=== PATIENT | female | born 1980 | race Caucasian/White ===

== ENCOUNTER 2017-11-29 06:59 | Emergency (ER) | payer MEDICAID ==
[~2017-11-29] VITALS: Ht 165.1 cm; Wt 76.8 kg
[~2017-11-29 06:59] MED LIST: ALBU8.5H8 INH; FLUT16SP2 BOTHNARES; GUAI120015 PO; HYDR-4383 PO; PSEU-259 PO
[2017-11-29 07:09] VITALS: BP 108/67
[2017-11-29] MEDS ORDERED: GUAI120L55 PO (07:27)
== END 2017-11-29 07:36 | disposition home or self-care (01) ==
LOC: ER 07:00
DX: J06.9 Acute upper respiratory infection, unspecified (principal); J45.909 Unspecified asthma, uncomplicated; Z90.710 Acquired absence of both cervix and uterus; Z79.899 Other long term (current) drug therapy
CPT/HCPCS: 99282

== ENCOUNTER 2017-12-01 05:34 | Emergency (ER) | payer MEDICAID ==
[~2017-12-01] VITALS: Ht 165.1 cm; Wt 78.3 kg
[~2017-12-01 05:34] MED LIST changes: +GUAI120L55 PO
[2017-12-01 05:37] VITALS: BP 115/70
[2017-12-01] MEDS ORDERED: BENZ-16 PO (05:52)
[2017-12-01] MEDS ORDERED: ketorolac trometh inj. 60 MG/2 ML VIAL IM ONE (05:55)
[2017-12-01] MEDS ORDERED: acetaminophen 325mg tablet PO ONE (05:55)
== END 2017-12-01 06:06 | disposition home or self-care (01) ==
LOC: ER 05:35
DX: J06.9 Acute upper respiratory infection, unspecified (principal); J45.909 Unspecified asthma, uncomplicated; Z90.710 Acquired absence of both cervix and uterus; Z79.899 Other long term (current) drug therapy
CPT/HCPCS: 96372; 99283; J1885

== ENCOUNTER 2018-01-23 14:47 | Emergency (ER) | payer MEDICAID ==
[~2018-01-23] VITALS: Ht 165.1 cm; Wt 79.3 kg
[2018-01-23 14:59] VITALS: BP 107/66
[2018-01-23] MEDS ORDERED: IBUP-1985 PO (15:29)
== END 2018-01-23 15:57 | disposition home or self-care (01) ==
LOC: ER 14:48
DX: S76.012A Strain of muscle, fascia and tendon of left hip, initial encounter (principal); J45.909 Unspecified asthma, uncomplicated; Z79.899 Other long term (current) drug therapy; Z90.710 Acquired absence of both cervix and uterus; X58.XXXA Exposure to other specified factors, initial encounter; Y93.89 Activity, other specified; Y92.89 Other specified places as the place of occurrence of the external cause; Y99.8 Other external cause status
CPT/HCPCS: 99282

== ENCOUNTER 2018-03-15 14:49 | Emergency (ER) | payer MEDICAID ==
[~2018-03-15] VITALS: Ht 165.1 cm; Wt 77.9 kg
[~2018-03-15 14:49] MED LIST changes: +IBUP-1985 PO
[2018-03-15 15:01] VITALS: BP 106/67
[2018-03-15 18:27] LABS: CLARITY,URINE CLEAR (Clear); COLOR,URINE YELLOW (Yellow); GLUCOSE, URINE NEGATIVE (Neg); KETONES,URINE >=80 mg/dl (Neg); LEUKOCYTE ESTERASE ,URINE NEGATIVE (Neg); NITRITES, URINE NEGATIVE (Neg); OCCULT BLOOD,URINE NEGATIVE (Neg); PROTEIN,URINE NEGATIVE (Neg); UROBILINOGEN,URINE 0.2 E.U/dL (0.2-1.0)
[2018-03-15 18:28] LABS: UA COLLECTION TYPE CLN CATCH MIDSTREAM
== END 2018-03-15 18:58 | disposition home or self-care (01) ==
LOC: ER 14:49
DX: R10.32 Left lower quadrant pain (principal); R10.12 Left upper quadrant pain; J45.909 Unspecified asthma, uncomplicated; F41.9 Anxiety disorder, unspecified; F32.9 Major depressive disorder, single episode, unspecified; Z79.899 Other long term (current) drug therapy; Z90.710 Acquired absence of both cervix and uterus
CPT/HCPCS: 81003; 99283

== ENCOUNTER 2019-09-05 09:49 | Emergency (ER) | payer BC, MEDICAID ==
[~2019-09-05] VITALS: Ht 165.1 cm; Wt 80.0 kg
[~2019-09-05 09:49] MED LIST changes: +CYCL-1 PO; +KETO10TA2 PO
[2019-09-05] MEDS ORDERED: ketorolac tromethamine 15mg/ml inj. IM ONE (11:05)
[2019-09-05 11:13] LABS: CLARITY,URINE SLIGHTLY CLOUDY (Clear); COLOR,URINE YELLOW (Yellow); GLUCOSE, URINE NEGATIVE (Neg); KETONES,URINE NEGATIVE (Neg); LEUKOCYTE ESTERASE ,URINE NEGATIVE (Neg); NITRITES, URINE NEGATIVE (Neg); OCCULT BLOOD,URINE LARGE (Neg); PROTEIN,URINE NEGATIVE (Neg)
[2019-09-05 11:14] LABS: UA COLLECTION TYPE NON-SPECIFIED
[2019-09-05 11:21] LABS: RBC,URINE 50-100 /HPF (0-2); WBC,URINE 0-4 /HPF (0-4)
[2019-09-05 11:23] LABS: BACTERIA,URINE 1+ /HPF (Neg); MUCUS STRANDS MODERATE /LPF (Neg); SQUAMOUS EPITHELIAL CELL,UR MODERATE /LPF (FEW)
[2019-09-05 11:35] VITALS: BP 117/67
[2019-09-05] MEDS ORDERED: IBUP-1985 PO (12:06)
[2019-09-05] MEDS ORDERED: HYDR-3965 PO (12:06)
== END 2019-09-05 12:24 | disposition home or self-care (01) ==
LOC: ER 09:50
DX: N20.0 Calculus of kidney (principal); R31.9 Hematuria, unspecified; R10.32 Left lower quadrant pain; J45.909 Unspecified asthma, uncomplicated; F41.9 Anxiety disorder, unspecified; F32.9 Major depressive disorder, single episode, unspecified; Z86.69 Personal history of other diseases of the nervous system and sense organs; Z85.41 Personal history of malignant neoplasm of cervix uteri; Z90.710 Acquired absence of both cervix and uterus; Z79.899 Other long term (current) drug therapy
CPT/HCPCS: 81001; 96372; 99284; J1885

== ENCOUNTER 2019-10-07 09:07 | Emergency (ER) | payer BC, OTHER ==
[~2019-10-07] VITALS: Ht 165.1 cm; Wt 82.7 kg
[~2019-10-07 09:07] MED LIST changes: +HYDR-3965 PO
[2019-10-07 09:55] LABS: BASOPHILS % (AUTO) 0.9 % (0-1); EOSINOPHILS # (AUTO) 0.2 X10'3 (0-0.9); EOSINOPHILS % (AUTO) 4.4 % (0-6); HEMATOCRIT 38.9 % (35.0-45.0); HEMOGLOBIN 13.5 g/dl (12.0-16.0); LYMPHOCYTES # (AUTO) 1.4 X10'3 (1.1-4.8); LYMPHOCYTES % (AUTO) 33.4 % (21-51); MEAN CORPUSCULAR HEMOGLOBIN 31.2 PG (27.0-31.0); MEAN CORPUSCULAR HGB CONC 34.6 g/dL (33.0-36.5); MEAN CORPUSCULAR VOLUME 90.2 FL (78-98); MEAN PLATELET VOLUME 8.2 FL (7.4-10.4); MONOCYTES # (AUTO) 0.3 X10'3 (0-0.9); MONOCYTES % (AUTO) 6.7 % (2-12); NEUTROPHILS # (AUTO) 2.3 X10'3 (1.8-7.7); NEUTROPHILS % (AUTO) 54.6 % (42-75); PLATELET COUNT 224 X10'3 (140-440); RED BLOOD COUNT 4.32 X10'6 (4.20-5.60); RED CELL DISTRIBUTION WIDTH 12.7 % (11.5-14.5); WHITE BLOOD COUNT 4.3 X10'3 (4.5-11.0)
[2019-10-07 10:00] LABS: ALBUMIN 3.9 G/DL (3.4-5.0); ANION GAP 9 (8-16); BLOOD UREA NITROGEN 13 MG/DL (7-18); BUN/CREATININE RATIO 16.3 (6.6-38.0); CALCIUM 8.5 MG/DL (8.5-10.1); CHLORIDE 103 MMOL/L (99-107); GLUCOSE 84 MG/DL (70-104); POTASSIUM 3.1 MMOL/L (3.5-5.1); SODIUM 139 MMOL/L (135-145); TOTAL CARBON DIOXIDE 26.8 MMOL/L (24-32); eGFR 80 ML/MIN
[2019-10-07 10:07] LABS: URINE HCG NEGATIVE (NEG)
[2019-10-07] MEDS ORDERED: iohexol 300mg/ml 100ml inj. ONE (10:10)
[2019-10-07 10:11] LABS: CLARITY,URINE CLEAR (Clear); COLOR,URINE YELLOW (Yellow); GLUCOSE, URINE NEGATIVE (Neg); KETONES,URINE NEGATIVE (Neg); LEUKOCYTE ESTERASE ,URINE NEGATIVE (Neg); NITRITES, URINE NEGATIVE (Neg); OCCULT BLOOD,URINE NEGATIVE (Neg); PROTEIN,URINE NEGATIVE (Neg); UROBILINOGEN,URINE 0.2 E.U/dL (0.2-1.0)
[2019-10-07 10:12] LABS: UA COLLECTION TYPE CLN CATCH MIDSTREAM
[2019-10-07] MEDS ORDERED: potassium Cl 20 mEq SR tablet PO STA (10:22)
[2019-10-07 11:17] VITALS: BP 106/72
== END 2019-10-07 11:19 | disposition home or self-care (01) ==
LOC: ER 09:08
DX: R19.7 Diarrhea, unspecified (principal); R10.31 Right lower quadrant pain; E87.6 Hypokalemia; J45.909 Unspecified asthma, uncomplicated; F41.9 Anxiety disorder, unspecified; Z90.710 Acquired absence of both cervix and uterus; Z79.899 Other long term (current) drug therapy
CPT/HCPCS: 74177; 80048; 81003; 81025; 85025; 99285; Q9967; 36415

== ENCOUNTER 2020-08-14 21:36 | Emergency (ER) | payer MEDICAID ==
[~2020-08-14] VITALS: Ht 165.1 cm; Wt 80.9 kg
[~2020-08-14 21:36] MED LIST changes: -HYDR-3965 PO
[2020-08-14 22:27] LABS: BASOPHILS % (AUTO) 0.3 % (0-1); EOSINOPHILS # (AUTO) 0.1 X10'3 (0-0.9); EOSINOPHILS % (AUTO) 0.9 % (0-6); HEMATOCRIT 39.3 % (35.0-45.0); HEMOGLOBIN 13.4 g/dl (12.0-16.0); LYMPHOCYTES # (AUTO) 1.3 X10'3 (1.1-4.8); LYMPHOCYTES % (AUTO) 14.3 % (21-51); MEAN CORPUSCULAR HEMOGLOBIN 30.9 PG (27.0-31.0); MEAN CORPUSCULAR HGB CONC 34.1 g/dL (33.0-36.5); MEAN CORPUSCULAR VOLUME 90.6 FL (78-98); MEAN PLATELET VOLUME 8.4 FL (7.4-10.4); MONOCYTES # (AUTO) 0.8 X10'3 (0-0.9); MONOCYTES % (AUTO) 8.4 % (2-12); NEUTROPHILS # (AUTO) 7.2 X10'3 (1.8-7.7); NEUTROPHILS % (AUTO) 76.1 % (42-75); PLATELET COUNT 239 X10'3 (140-440); RED BLOOD COUNT 4.34 X10'6 (4.20-5.60); RED CELL DISTRIBUTION WIDTH 12.9 % (11.5-14.5); WHITE BLOOD COUNT 9.4 X10'3 (4.5-11.0)
[2020-08-14 22:33] LABS: ALANINE AMINOTRANSFERASE 22 U/L (12-78); ALBUMIN 3.7 G/DL (3.4-5.0); ALBUMIN/GLOBULIN RATIO 0.9 (1.1-1.5); ALKALINE PHOSPHATASE 58 IU/L (46-116); ANION GAP 10 (8-16); ASPARTATE AMINO TRANSFERASE 14 U/L (10-37); BILIRUBIN,TOTAL 0.3 MG/DL (0.1-1.0); BLOOD UREA NITROGEN 12 MG/DL (7-18); BUN/CREATININE RATIO 14.8 (6.6-38.0); CHLORIDE 105 MMOL/L (99-107); CREATININE 0.81 MG/DL (0.40-0.90); GLUCOSE 102 MG/DL (70-104); LIPASE 111 U/L (73-393); SODIUM 141 MMOL/L (135-145); TOTAL CARBON DIOXIDE 25.8 MMOL/L (24-32); TOTAL PROTEIN 7.8 G/DL (6.4-8.2); eGFR 79 ML/MIN
[2020-08-14 22:36] LABS: CLARITY,URINE TURBID (Clear); COLOR,URINE YELLOW (Yellow); GLUCOSE, URINE NEGATIVE (Neg); KETONES,URINE NEGATIVE (Neg); LEUKOCYTE ESTERASE ,URINE NEGATIVE (Neg); NITRITES, URINE NEGATIVE (Neg); OCCULT BLOOD,URINE NEGATIVE (Neg); PH,URINE 5.5 (4.8-8.0); PROTEIN,URINE 30 mg/dl (Neg); UROBILINOGEN,URINE 0.2 E.U/dL (0.2-1.0)
[2020-08-14 22:36] LABS: POTASSIUM 2.8 MMOL/L (3.5-5.1)
[2020-08-14 22:41] LABS: URINE HCG NEGATIVE (NEG)
[2020-08-14] MEDS ORDERED: potassium Cl 10 mEq/100mL bag IV ONE (22:45)
[2020-08-14 22:47] LABS: UA COLLECTION TYPE CLN CATCH MIDSTREAM
[2020-08-14 23:01] LABS: MAGNESIUM 1.9 MG/DL (1.5-2.4)
[2020-08-14 23:13] LABS: AMORPHOUS URATES 3+; BACTERIA,URINE NONE SEEN /HPF (Neg); MUCUS STRANDS MANY /LPF (Neg); RBC,URINE NONE SEEN /HPF (0-2); SQUAMOUS EPITHELIAL CELL,UR MANY /LPF (FEW); WBC,URINE 0-4 /HPF (0-4)
[2020-08-15] MEDS ORDERED: potassium Cl 20 mEq SR tablet PO STA (01:18)
[2020-08-15] MEDS ORDERED: magnesium oxide 400mg tablet PO ONE (01:20)
[2020-08-15] MEDS ORDERED: acetaminophen 325mg tablet PO ONE (02:05)
[2020-08-15] MEDS ORDERED: ondansetron/PF 4mg/2ml inj IV ONE (02:05)
[2020-08-15] MEDS ORDERED: potassium Cl 10 mEq/100mL bag IV ONE (02:05)
[2020-08-15] MEDS ORDERED: normal saline 1000ML IV soln IVB ONE ×3 (02:05→08:30)
[2020-08-15] MEDS ORDERED: dicyclomine 10 MG capsule PO ONE (03:50)
--- NOTE | 2020-08-15 04:02 | NUR ---
Patient had an episode of emsis- zofran administered. Waiting before giving PO medications.
--- NOTE | 2020-08-15 06:52 | NUR ---
RE STARTED NS IV BOLUS.STILL FINISHING UP WO BAGS OF NS 1L EACH.CALL LIGHT WTIHIN REACH,DENIES NAUSEA NO VOMITING.
[2020-08-15] MEDS ORDERED: diphenoxylate/atropine tablet (Lomotil) PO ONE (08:30)
[2020-08-15] MEDS ORDERED: ONDA4TAB6 PO (08:33)
[2020-08-15] MEDS ORDERED: DIPH1TAB PO (08:33)
[2020-08-15 09:15] VITALS: BP 97/67
== END 2020-08-15 09:17 | disposition home or self-care (01) ==
LOC: ER 21:36
DX: K52.9 Noninfective gastroenteritis and colitis, unspecified (principal); E87.6 Hypokalemia; J45.909 Unspecified asthma, uncomplicated; Z87.442 Personal history of urinary calculi; F41.9 Anxiety disorder, unspecified; F32.9 Major depressive disorder, single episode, unspecified
CPT/HCPCS: 36415; 80053; 81001; 81025; 83690; 83735; 85025; 96361; 96365; 96366; 96375; 99285; J2405; J3480; J7030; 96374

== ENCOUNTER 2020-10-09 06:58 | Emergency (ER) | payer MEDICAID ==
[~2020-10-09] VITALS: Ht 165.1 cm; Wt 81.8 kg
[~2020-10-09 06:58] MED LIST changes: +ALBU8.5H17 INH; -ALBU8.5H8 INH; +DIPH1TAB PO; +ONDA4TAB6 PO
[2020-10-09 07:13] VITALS: BP 115/73
[2020-10-09] MEDS ORDERED: acetaminophen 325mg tablet PO ONE (07:45)
[2020-10-09] MEDS ORDERED: ondansetron 4mg rapidly disintigrating tab PO ONE (07:45)
[2020-10-09 09:38] LABS: BASOPHILS % (AUTO) 0.4 % (0-1); EOSINOPHILS # (AUTO) 0.1 X10'3 (0-0.9); EOSINOPHILS % (AUTO) 1.8 % (0-6); HEMATOCRIT 38.6 % (35.0-45.0); LYMPHOCYTES # (AUTO) 1.6 X10'3 (1.1-4.8); LYMPHOCYTES % (AUTO) 25.7 % (21-51); MEAN CORPUSCULAR HGB CONC 33.7 g/dL (33.0-36.5); MEAN CORPUSCULAR VOLUME 91.9 FL (78-98); MEAN PLATELET VOLUME 8.1 FL (7.4-10.4); MONOCYTES # (AUTO) 0.4 X10'3 (0-0.9); MONOCYTES % (AUTO) 6.5 % (2-12); NEUTROPHILS # (AUTO) 4.2 X10'3 (1.8-7.7); NEUTROPHILS % (AUTO) 65.6 % (42-75); PLATELET COUNT 240 X10'3 (140-440); RED CELL DISTRIBUTION WIDTH 13.8 % (11.5-14.5); WHITE BLOOD COUNT 6.4 X10'3 (4.5-11.0)
[2020-10-09 09:55] LABS: ALANINE AMINOTRANSFERASE 22 U/L (12-78); ALBUMIN 3.9 G/DL (3.4-5.0); ALKALINE PHOSPHATASE 53 IU/L (46-116); ANION GAP 12 (8-16); ASPARTATE AMINO TRANSFERASE 16 U/L (10-37); BILIRUBIN,TOTAL 0.4 MG/DL (0.1-1.0); BLOOD UREA NITROGEN 12 MG/DL (7-18); BUN/CREATININE RATIO 18.2 (6.6-38.0); CALCIUM 8.2 MG/DL (8.5-10.1); CHLORIDE 108 MMOL/L (99-107); CREATININE 0.66 MG/DL (0.40-0.90); GLUCOSE 92 MG/DL (70-104); POTASSIUM 3.9 MMOL/L (3.5-5.1); SODIUM 143 MMOL/L (135-145); TOTAL CARBON DIOXIDE 23.3 MMOL/L (24-32); TOTAL PROTEIN 7.9 G/DL (6.4-8.2); eGFR > 90 ML/MIN
[2020-10-09] MEDS ORDERED: ONDA8TAB13 PO (10:17)
[2020-10-09] MEDS ORDERED: BENZ-16 PO (10:17)
--- NOTE | 2020-10-09 11:05 | NUR ---
Patient seen and assessed by provider.
== END 2020-10-09 11:04 | disposition home or self-care (01) ==
LOC: ER 06:58
DX: J06.9 Acute upper respiratory infection, unspecified (principal); Z20.822 Contact with and (suspected) exposure to COVID-19; R11.10 Vomiting, unspecified; G40.909 Epilepsy, unspecified, not intractable, without status epilepticus; J45.909 Unspecified asthma, uncomplicated; Z87.442 Personal history of urinary calculi; Z87.410 Personal history of cervical dysplasia; Z90.710 Acquired absence of both cervix and uterus; Z79.899 Other long term (current) drug therapy
CPT/HCPCS: 36415; 80053; 85025; 87635; 99283; C9803

== ENCOUNTER 2021-02-19 05:58 | Emergency (ER) | payer MEDICAID ==
[~2021-02-19] VITALS: Ht 165.1 cm; Wt 84.0 kg
[~2021-02-19 05:58] MED LIST changes: +ONDA8TAB13 PO
[2021-02-19 06:50] VITALS: BP 115/84
[2021-02-19] MEDS ORDERED: ONDA4TAB6 PO (08:02)
== END 2021-02-19 08:43 | disposition home or self-care (01) ==
LOC: ER 05:59
DX: B34.9 Viral infection, unspecified (principal); Z20.822 Contact with and (suspected) exposure to COVID-19; K52.9 Noninfective gastroenteritis and colitis, unspecified; J45.909 Unspecified asthma, uncomplicated; G40.909 Epilepsy, unspecified, not intractable, without status epilepticus; Z87.410 Personal history of cervical dysplasia; Z87.442 Personal history of urinary calculi; Z90.710 Acquired absence of both cervix and uterus; Z79.899 Other long term (current) drug therapy
CPT/HCPCS: 71045; 87635; 99284; C9803

== ENCOUNTER 2021-03-03 08:21 | Emergency (ER) | payer MEDICAID ==
[~2021-03-03] VITALS: Ht 165.1 cm; Wt 86.4 kg
[2021-03-03] MEDS ORDERED: normal saline 1000ML IV soln IVB ONE (09:35)
[2021-03-03] MEDS ORDERED: proCHLORperazine 10 MG/2 ml inj IV ONE (09:35)
[2021-03-03] MEDS ORDERED: ketorolac tromethamine 15mg/ml inj. IV ONE (09:35)
[2021-03-03] MEDS ORDERED: diphenhydrAMINE 50 mg/ml inj IV ONE (09:35)
[2021-03-03 09:51] LABS: BASOPHILS % (AUTO) 0.4 % (0-1); EOSINOPHILS # (AUTO) 0.1 X10'3 (0-0.9); EOSINOPHILS % (AUTO) 1.7 % (0-6); HEMATOCRIT 41.4 % (35.0-45.0); HEMOGLOBIN 13.9 g/dl (12.0-16.0); LYMPHOCYTES # (AUTO) 1.7 X10'3 (1.1-4.8); LYMPHOCYTES % (AUTO) 34.3 % (21-51); MEAN CORPUSCULAR HEMOGLOBIN 30.6 PG (27.0-31.0); MEAN CORPUSCULAR HGB CONC 33.6 g/dL (33.0-36.5); MEAN PLATELET VOLUME 8.1 FL (7.4-10.4); MONOCYTES # (AUTO) 0.4 X10'3 (0-0.9); MONOCYTES % (AUTO) 7.6 % (2-12); NEUTROPHILS # (AUTO) 2.8 X10'3 (1.8-7.7); PLATELET COUNT 270 X10'3 (140-440); RED BLOOD COUNT 4.55 X10'6 (4.20-5.60); RED CELL DISTRIBUTION WIDTH 12.6 % (11.5-14.5); WHITE BLOOD COUNT 5.1 X10'3 (4.5-11.0)
[2021-03-03 10:01] LABS: ALANINE AMINOTRANSFERASE 31 U/L (12-78); ALBUMIN 4.1 G/DL (3.4-5.0); ALBUMIN/GLOBULIN RATIO 1.1 (1.1-1.5); ALKALINE PHOSPHATASE 62 IU/L (46-116); ANION GAP 11 (8-16); ASPARTATE AMINO TRANSFERASE 19 U/L (10-37); BILIRUBIN,TOTAL 0.6 MG/DL (0.1-1.0); BLOOD UREA NITROGEN 13 MG/DL (7-18); BUN/CREATININE RATIO 18.3 (6.6-38.0); CALCIUM 8.7 MG/DL (8.5-10.1); CHLORIDE 104 MMOL/L (99-107); CREATININE 0.71 MG/DL (0.40-0.90); GLUCOSE 88 MG/DL (70-104); MAGNESIUM 2.1 MG/DL (1.5-2.4); PHOSPHORUS 2.7 MG/DL (2.3-4.5); SODIUM 140 MMOL/L (135-145); TOTAL PROTEIN 7.9 G/DL (6.4-8.2); eGFR > 90 ML/MIN
[2021-03-03 10:47] VITALS: BP 128/61
== END 2021-03-03 10:50 | disposition home or self-care (01) ==
LOC: ER 08:22
DX: B34.9 Viral infection, unspecified (principal); Z20.822 Contact with and (suspected) exposure to COVID-19; J45.909 Unspecified asthma, uncomplicated; Z87.442 Personal history of urinary calculi; Z90.410 Acquired total absence of pancreas; Z87.891 Personal history of nicotine dependence
CPT/HCPCS: 36415; 80053; 83735; 84100; 85025; 96361; 96374; 96375; 99284; J0780; J1200; J1885; J7030; U0003; U0005

== ENCOUNTER 2021-11-10 06:46 | Emergency (ER) | payer MEDICAID ==
[~2021-11-10] VITALS: Ht 165.1 cm; Wt 83.2 kg
[2021-11-10 07:31] LABS: CLARITY,URINE CLEAR (Clear); COLOR,URINE YELLOW (Yellow); GLUCOSE, URINE NEGATIVE (Neg); KETONES,URINE NEGATIVE (Neg); LEUKOCYTE ESTERASE ,URINE NEGATIVE (Neg); NITRITES, URINE NEGATIVE (Neg); OCCULT BLOOD,URINE TRACE-INTACT (Neg); PH,URINE 5.5 (4.8-8.0); PROTEIN,URINE NEGATIVE (Neg); UROBILINOGEN,URINE 0.2 E.U/dL (0.2-1.0)
[2021-11-10 07:33] LABS: UA COLLECTION TYPE CLN CATCH MIDSTREAM; URINE HCG NEGATIVE (NEG)
[2021-11-10 07:55] LABS: BACTERIA,URINE FEW /HPF (Neg); MUCUS STRANDS FEW /LPF (Neg); RBC,URINE 0-2 /HPF (0-2); SQUAMOUS EPITHELIAL CELL,UR MANY /LPF (FEW); WBC,URINE 0-4 /HPF (0-4)
--- NOTE | 2021-11-10 08:58 | NUR ---
PT C/O RLQ PAIN AND BACK PAIN IN BETWEEN SHOULDER PAIN. PANSCALE 7/10 BACK, 5/10 RLQ.
[2021-11-10 08:59] LABS: BASOPHILS % (AUTO) 0.2 % (0-1); EOSINOPHILS # (AUTO) 0.1 X10'3 (0-0.9); EOSINOPHILS % (AUTO) 1.6 % (0-6); HEMATOCRIT 38.7 % (35.0-45.0); HEMOGLOBIN 13.5 g/dl (12.0-16.0); LYMPHOCYTES # (AUTO) 1.8 X10'3 (1.1-4.8); LYMPHOCYTES % (AUTO) 26.7 % (21-51); MEAN CORPUSCULAR HEMOGLOBIN 31.5 PG (27.0-31.0); MEAN CORPUSCULAR HGB CONC 34.8 g/dL (33.0-36.5); MEAN CORPUSCULAR VOLUME 90.5 FL (78-98); MEAN PLATELET VOLUME 8.3 FL (7.4-10.4); MONOCYTES # (AUTO) 0.4 X10'3 (0-0.9); MONOCYTES % (AUTO) 6.6 % (2-12); NEUTROPHILS # (AUTO) 4.3 X10'3 (1.8-7.7); NEUTROPHILS % (AUTO) 64.9 % (42-75); PLATELET COUNT 226 X10'3 (140-440); RED BLOOD COUNT 4.28 X10'6 (4.20-5.60); RED CELL DISTRIBUTION WIDTH 13.3 % (11.5-14.5); WHITE BLOOD COUNT 6.6 X10'3 (4.5-11.0)
[2021-11-10 09:14] LABS: ALANINE AMINOTRANSFERASE 21 U/L (12-78); ALBUMIN/GLOBULIN RATIO 1.1 (1.1-1.5); ALKALINE PHOSPHATASE 55 IU/L (46-116); ANION GAP 7 (8-16); ASPARTATE AMINO TRANSFERASE 13 U/L (10-37); BILIRUBIN,TOTAL 0.3 MG/DL (0.1-1.0); BLOOD UREA NITROGEN 14 MG/DL (7-18); BUN/CREATININE RATIO 17.7 (6.6-38.0); CALCIUM 8.9 MG/DL (8.5-10.1); CHLORIDE 104 MMOL/L (99-107); CREATININE 0.79 MG/DL (0.40-0.90); GLUCOSE 90 MG/DL (70-104); LIPASE 135 U/L (73-393); POTASSIUM 4.3 MMOL/L (3.5-5.1); SODIUM 138 MMOL/L (135-145); TOTAL CARBON DIOXIDE 27.5 MMOL/L (24-32); TOTAL PROTEIN 7.7 G/DL (6.4-8.2); eGFR 81 ML/MIN
--- NOTE | 2021-11-10 10:59 | NUR ---
ABD PAIN ON PAINSCALE 08/22.
[2021-11-10 12:18] VITALS: BP 116/72
== END 2021-11-10 12:20 | disposition home or self-care (01) ==
LOC: ER 06:46
DX: N83.201 Unspecified ovarian cyst, right side (principal); Z20.822 Contact with and (suspected) exposure to COVID-19; R10.31 Right lower quadrant pain; R05.9 Cough, unspecified; R51.9 Headache, unspecified; J45.909 Unspecified asthma, uncomplicated; Z98.890 Other specified postprocedural states; Z90.710 Acquired absence of both cervix and uterus; Z98.51 Tubal ligation status; Z87.891 Personal history of nicotine dependence
CPT/HCPCS: 36415; 71045; 74176; 80053; 81001; 81025; 83690; 84145; 85025; 87635; 99285; C9803; J7030

== ENCOUNTER 2022-07-25 05:40 | Emergency (ER) | payer MEDICAID ==
[~2022-07-25] VITALS: Ht 165.1 cm; Wt 88.6 kg
[2022-07-25] MEDS ORDERED: LORazepam 2 mg/ml vial IV ONE (06:50)
[2022-07-25] MEDS ORDERED: normal saline 1000ML IV soln IVB ONE (06:50)
[2022-07-25] MEDS ORDERED: proCHLORperazine 10 MG/2 ml inj IV ONE (06:50)
[2022-07-25] MEDS ORDERED: morphine 2 MG/ML inj. syringe IV PRN (06:50)
--- NOTE | 2022-07-25 08:25 | NUR ---
ADM REPORT CHARTED ON WRONG PT. UNDONE BY RN.
--- NOTE | 2022-07-25 08:31 | NUR ---
RN NOTIFIED DR BRODY PT BP 88/54 HR 54 AND PT IS SLEEPING. PER DR WILHELM 2ND DOSE OF MORPHINE AND RN MAY ORD AND ADMIN 500 CC BOLUS NS.
[2022-07-25] MEDS ORDERED: normal saline 1000ml 1,000 ML IV ONE (08:35)
--- NOTE | 2022-07-25 09:40 | NUR ---
RN COMPLETED MRI FORM AND FAXED IT TO [facility].
--- NOTE | 2022-07-25 10:51 | NUR ---
Success A new connect request was successfully created for: ELIZA SHUKLA : 1980 ConnectID: [id number] REASON: Other Emergency ACUITY: Acuity Level 2 SUBMITTED: 07/25/2022 10:51 PDT
[2022-07-25] MEDS ORDERED: dexamethasone sod phosphate 10mg/ml inj IV STA (11:20)
[2022-07-25] MEDS ORDERED: VALPROATE SOD IV ONE ×2 (11:40→11:41)
[2022-07-25] MEDS ORDERED: NORMAL SALINE IV ONE ×2 (11:40→11:41)
[2022-07-25 11:50] LABS: BASOPHILS % (AUTO) 0.3 % (0-1); EOSINOPHILS # (AUTO) 0.2 X10'3 (0-0.9); EOSINOPHILS % (AUTO) 2.1 % (0-6); HEMOGLOBIN 12.8 g/dl (12.0-16.0); LYMPHOCYTES # (AUTO) 1.5 X10'3 (1.1-4.8); LYMPHOCYTES % (AUTO) 19.5 % (21-51); MEAN CORPUSCULAR HEMOGLOBIN 30.3 PG (27.0-31.0); MEAN CORPUSCULAR HGB CONC 32.9 g/dL (33.0-36.5); MEAN CORPUSCULAR VOLUME 92.3 FL (78-98); MONOCYTES # (AUTO) 0.5 X10'3 (0-0.9); MONOCYTES % (AUTO) 6.5 % (2-12); NEUTROPHILS # (AUTO) 5.4 X10'3 (1.8-7.7); NEUTROPHILS % (AUTO) 71.6 % (42-75); PLATELET COUNT 218 X10'3 (140-440); RED BLOOD COUNT 4.23 X10'6 (4.20-5.60); WHITE BLOOD COUNT 7.6 X10'3 (4.5-11.0)
--- NOTE | 2022-07-25 11:54 | NUR ---
CHERYL GAYTAN FROM PHARMACY. PHARMACY WILL DELIVER WHEN ITS READY.
[2022-07-25 12:08] LABS: ALANINE AMINOTRANSFERASE 21 U/L (12-78); ALBUMIN 3.2 G/DL (3.4-5.0); ALKALINE PHOSPHATASE 48 IU/L (46-116); ANION GAP 11 (8-16); ASPARTATE AMINO TRANSFERASE 22 U/L (10-37); BILIRUBIN,TOTAL 0.4 MG/DL (0.1-1.0); BLOOD UREA NITROGEN 11 MG/DL (7-18); BUN/CREATININE RATIO 18.6 (10.0-20.0); CALCIUM 8.1 MG/DL (8.5-10.1); CHLORIDE 111 MMOL/L (99-107); CREATININE 0.59 MG/DL (0.40-0.90); GLUCOSE 86 MG/DL (70-104); POTASSIUM 3.6 MMOL/L (3.5-5.1); SODIUM 140 MMOL/L (135-145); TOTAL CARBON DIOXIDE 18.3 MMOL/L (24-32); TOTAL PROTEIN 6.4 G/DL (6.4-8.2); eGFR > 90 ML/MIN
[2022-07-25] MEDS ORDERED: iohexol 350MG/ML 100ml bottle IV ONE (12:58)
--- NOTE | 2022-07-25 13:01 | NUR ---
PT TAKEN TO CT.
--- NOTE | 2022-07-25 16:54 | NUR ---
PER PHARMACIST PT SHOULD NOT DRIVE HERSELF HOME D/T DEPACON DRIP CAN CAUSE DIZZINESS AND HER TO BE SLEEPY. RN WILL SEE IF PT CAN GET A RIDE OR PAY FOR TAXI.
--- NOTE | 2022-07-25 17:14 | NUR ---
PER PHARMACIST HALF LIFE OF DEPACON DRIP IS 6-17 HRS AND ITS NOT SAFE FOR PT TO DRIVE AT THIS TIME. PER [facility] TAXI IS AUTHORIZED.
[2022-07-25 17:24] VITALS: BP 116/77
--- NOTE | 2022-07-25 17:24 | NUR ---
PT WAS ABLE TO FIND A RIDE WITH A FRIEND AND WILL NOT NEED A TAXI.
== END 2022-07-25 17:26 | disposition home or self-care (01) ==
LOC: ER 05:41
DX: G43.809 Other migraine, not intractable, without status migrainosus (principal); J45.909 Unspecified asthma, uncomplicated; Z90.710 Acquired absence of both cervix and uterus; Z98.51 Tubal ligation status
CPT/HCPCS: 36415; 70450; 70496; 70498; 72141; 80053; 82948; 85025; 96361; 96365; 96375; 99285; J0780; J1100; J2060; J2270; J3490; J7030; J7040; Q9967

== ENCOUNTER 2023-05-26 12:45 | Emergency (ER) | payer MEDICAID | END 2023-05-26 13:03 | disposition left against medical advice (07) | LOC: ER 12:46 | DX: Z04.1 Encounter for examination and observation following transport accident (principal); Z53.21 Procedure and treatment not carried out due to patient leaving prior to being seen by health care provider | CPT/HCPCS: 99281 ==

== ENCOUNTER → 2023-08-02 | Outpatient (CLI) | payer MEDICAID | END | disposition home or self-care (01) | LOC: MRI 10:22 | PROVIDERS: ATTEND Pediatrics Sports Medicine | DX: M75.52 Bursitis of left shoulder (principal); M25.512 Pain in left shoulder; M79.10 Myalgia, unspecified site | CPT/HCPCS: 73221 ==

== ENCOUNTER 2023-11-03 00:09 | Emergency (ER) | payer MEDICAID ==
[~2023-11-03] VITALS: Ht 165.1 cm; Wt 65.5 kg
[~2023-11-03 00:09] MED LIST changes: +ONDA-245 PO; -ONDA8TAB13 PO
[2023-11-03 02:16] VITALS: BP 109/76; PULSE 68; RESP 14; TEMP 98.6; O2SAT 99
== END 2023-11-03 02:21 | disposition home or self-care (01) ==
LOC: ER 00:10
DX: D17.79 Benign lipomatous neoplasm of other sites (principal); G43.909 Migraine, unspecified, not intractable, without status migrainosus; J45.909 Unspecified asthma, uncomplicated; F41.9 Anxiety disorder, unspecified; F32.A Depression, unspecified; Z79.899 Other long term (current) drug therapy; Z79.51 Long term (current) use of inhaled steroids; Z79.1 Long term (current) use of non-steroidal anti-inflammatories (NSAID); Z98.890 Other specified postprocedural states; Z90.710 Acquired absence of both cervix and uterus; Z98.51 Tubal ligation status; Z87.442 Personal history of urinary calculi; Z85.89 Personal history of malignant neoplasm of other organs and systems
CPT/HCPCS: 99281

== ENCOUNTER 2024-06-26 18:10 | Emergency (ER) | payer MEDICAID ==
[~2024-06-26] VITALS: Ht 165.1 cm; Wt 69.5 kg
[2024-06-26 18:35] VITALS: BP 114/72; PULSE 75; RESP 15; TEMP 97.6; O2SAT 100
[2024-06-26 19:01] LABS: BILIRUBIN,URINE SMALL (Neg); CLARITY,URINE CLOUDY (Clear); COLOR,URINE STRAW (Yellow); GLUCOSE, URINE NEGATIVE (Neg); KETONES,URINE 15 mg/dl (Neg); LEUKOCYTE ESTERASE ,URINE NEGATIVE (Neg); NITRITES, URINE NEGATIVE (Neg); OCCULT BLOOD,URINE LARGE (Neg); PH,URINE 5.5 (4.8-8.0); PROTEIN,URINE 100 mg/dl (Neg); UROBILINOGEN,URINE 0.2 E.U/dL (0.2-1.0)
[2024-06-26 19:03] LABS: BASOPHILS % (AUTO) 0.3 % (0-1); EOSINOPHILS % (AUTO) 0.5 % (0-6); HEMATOCRIT 36.7 % (35.0-45.0); HEMOGLOBIN 12.6 g/dl (12.0-16.0); LYMPHOCYTES # (AUTO) 2.1 X10'3 (1.1-4.8); LYMPHOCYTES % (AUTO) 25.4 % (21-51); MEAN CORPUSCULAR HEMOGLOBIN 31.1 PG (27.0-31.0); MEAN CORPUSCULAR HGB CONC 34.4 g/dL (33.0-36.5); MEAN CORPUSCULAR VOLUME 90.3 FL (78-98); MEAN PLATELET VOLUME 8.4 FL (7.4-10.4); MONOCYTES # (AUTO) 0.4 X10'3 (0-0.9); MONOCYTES % (AUTO) 4.5 % (2-12); NEUTROPHILS # (AUTO) 5.8 X10'3 (1.8-7.7); NEUTROPHILS % (AUTO) 69.3 % (42-75); PLATELET COUNT 238 X10'3 (140-440); RED BLOOD COUNT 4.06 X10'6 (4.20-5.60); RED CELL DISTRIBUTION WIDTH 12.4 % (11.5-14.5); WHITE BLOOD COUNT 8.3 X10'3 (4.5-11.0)
[2024-06-26 19:14] LABS: URINE HCG NEGATIVE (NEG)
[2024-06-26 19:25] LABS: ALANINE AMINOTRANSFERASE 21 U/L (12-78); ALBUMIN 4.1 G/DL (3.4-5.0); ALBUMIN/GLOBULIN RATIO 1.3 (1.1-1.5); ALKALINE PHOSPHATASE 50 IU/L (46-116); ANION GAP 8 (8-16); ASPARTATE AMINO TRANSFERASE 21 U/L (10-37); BILIRUBIN,TOTAL 0.7 MG/DL (0.1-1.0); BLOOD UREA NITROGEN 10 MG/DL (7-18); BUN/CREATININE RATIO 13.3 (10.0-20.0); CALCIUM 8.8 MG/DL (8.5-10.1); CHLORIDE 105 MMOL/L (99-107); CREATININE 0.75 MG/DL (0.40-0.90); GLUCOSE 77 MG/DL (70-104); LIPASE 47 U/L (16-77); POTASSIUM 3.7 MMOL/L (3.5-5.1); SODIUM 141 MMOL/L (135-145); TOTAL CARBON DIOXIDE 28.4 MMOL/L (24-32); TOTAL PROTEIN 7.2 G/DL (6.4-8.2); eCRCL 88 ML/MIN; eGFR 85 ML/MIN
[2024-06-26 19:45] LABS: UA COLLECTION TYPE CLN CATCH MIDSTREAM
[2024-06-26 19:46] LABS: BACTERIA,URINE 2+ /HPF (Neg); RBC,URINE TNTC /HPF (0-2); SQUAMOUS EPITHELIAL CELL,UR FEW /LPF (FEW); WBC,URINE 0-4 /HPF (0-4)
[2024-06-26 19:47] LABS: MUCUS STRANDS FEW /LPF (Neg); RENAL CELLS, URINE FEW /HPF; TRANSITIONAL EPI CELLS,URINE FEW /HPF
== END 2024-06-26 23:45 | disposition left against medical advice (07) ==
LOC: ER 18:11
DX: R10.31 Right lower quadrant pain (principal); Z53.21 Procedure and treatment not carried out due to patient leaving prior to being seen by health care provider
CPT/HCPCS: 36415; 80053; 81001; 81025; 83690; 85025